=== PATIENT | male | born 1980 | race Two or more races ===

== ENCOUNTER 2019-03-09 20:24 | Emergency (ER) | payer SELFPAY ==
[2019-03-09 20:37] VITALS: BP 134/84
[2019-03-09] MEDS ORDERED: PREDNISONE 20 MG TABLET PO ONE (20:42)
[2019-03-09] MEDS ORDERED: FAMOTIDINE 20 MG TABLET PO ONE (20:42)
--- NOTE | 2019-03-09 20:48 | ER Document Report ---
ED Allergic Reaction - General Chief Complaint: Allergic Reaction Stated Complaint: RASH/ALLERGIC REACTION Time Seen by Provider: 03/09/19 20:41 Mode of Arrival: Ambulatory Information source: Patient Notes: 38-year-old male presented to ED for swelling and rash to bilateral hands up to just above the wrist. He states it started last night after working. He states he worked outside all day yesterday but he had on latex gloves and long sleeves all the way down past the gloves. He states there is no way he got in touch with any allergens from the outside. He states these were his labs no one else had worn these gloves. He denies any known allergies. He states he smokes 2 to 3 cigarettes a day and works for the [employer]. States he took 2 Benadryl last night to again at 7 and 2 again at 5 or 6:00 this afternoon has been using calamine lotion on his hands all day. He states the swelling has continued. TRAVEL OUTSIDE OF THE [place] IN LAST 30 DAYS: No - HPI Onset: Yesterday Onset/Duration: Gradual Quality of pain: Other - Rash and swelling Severity: None Pain Level: Denies Identified cause: No Skin rash / itching: "Redness", "Hives" - Both hands and wrist Swelling: Hands - Both hands and wrist Associated symptoms: None Similar symptoms previously: No Recently seen / treated by doctor: No - Related Data Allergies/Adverse Reactions: No Known Allergies Allergy (Unverified 03/09/19 20:43) Past Medical History - General Information source: Patient - Social History Smoking Status: Current Every Day Smoker Cigarette use (# per day): Yes - 2 to 3 cigarettes a day Smoking Education Provided: Yes Frequency of alcohol use: None Drug Abuse: None Lives with: Alone Family History: Reviewed & Not Pertinent Patient has suicidal ideation: No Patient has homicidal ideation: No - Past Medical History Cardiac Medical History: Reports: None Pulmonary Medical History: Reports: None EENT Medical History: Reports: None Neurological Medical History: Reports: None Endocrine Medical History: Reports: None Renal/ Medical History: Reports: None Malignancy Medical History: Reports None GI Medical History: Reports: None Musculoskeletal Medical History: Reports None Skin Medical History: Reports None Psychiatric Medical History: Reports: None Traumatic Medical History: Reports: None Infectious Medical History: Reports: None Surgical Hx: Negative Past Surgical History: Reports: None - Immunizations Immunizations up to date: Yes Hx Diphtheria, Pertussis, Tetanus Vaccination: Yes Review of Systems - Review of Systems Constitutional: No symptoms reported EENT: No symptoms reported Cardiovascular: No symptoms reported Respiratory: No symptoms reported Gastrointestinal: No symptoms reported Genitourinary: No symptoms reported Male Genitourinary: No symptoms reported Musculoskeletal: No symptoms reported Skin: Rash - Rash and swelling to bilateral hands Hematologic/Lymphatic: No symptoms reported Neurological/Psychological: No symptoms reported -: Yes All other systems reviewed and negative Physical Exam - Vital signs Vitals: Temp Pulse Resp BP Pulse Ox 98.6 F 90 18 134/84 H 97 03/09/19 20:36 03/09/19 20:36 03/09/19 20:36 03/09/19 20:36 03/09/19 20:36 Interpretation: Normal - General General appearance: Appears well, Alert - HEENT Head: Normocephalic, Atraumatic Eyes: Normal Pupils: PERRL - Respiratory Respiratory status: No respiratory distress Chest status: Nontender Breath sounds: Normal Chest palpation: Normal - Cardiovascular Rhythm: Regular Heart sounds: Normal auscultation Murmur: No - Abdominal Inspection: Normal Distension: No distension Bowel sounds: Normal Tenderness: Nontender Organomegaly: No organomegaly - Back Back: Normal, Nontender - Extremities General upper extremity: Nontender, Normal ROM, Normal temperature General lower extremity: Normal inspection, Nontender, Normal color, Normal ROM, Normal temperature, Normal weight bearing. No: Lj's sign Hand: Swelling - Bilateral hands, Other - Papule red rash and swelling. No: No evidence of human bite, No evidence of FB - Neurological Neuro grossly intact: Yes Cognition: Normal Orientation: AAOx4 Julio Cesar Coma Scale Eye Opening: Spontaneous Phelps Coma Scale Verbal: Oriented Phelps Coma Scale Motor: Obeys Commands Phelps Coma Scale Total: 15 Speech: Normal Motor strength normal: LUE, RUE, LLE, RLE Sensory: Normal - Psychological Associated symptoms: Normal affect, Normal mood - Skin Skin Temperature: Warm Skin Moisture: Dry Skin Color: Normal Location of irregularity: Extremities - Bilateral hands and wrist Character of irregularity: Papular, Erythematous, Urticarial Irregularity with: Swelling Course - Re-evaluation Re-evalutation: 03/09/19 20:54 Patient treated with prednisone and Pepcid and instructed to follow-up with senior medical transcriptionist. Patient was given a prescription for Pepcid and prednisone. Patient was given a list of the local senior medical transcriptionist to follow-up with. Patient was also given a list of primary care doctors. Was discharged home. Patient was instructed to elevate ice hands to reduce use of hot water to the hands. - Vital Signs Vital signs: Temp Pulse Resp BP Pulse Ox 98.6 F 90 18 134/84 H 97 03/09/19 20:36 03/09/19 20:36 03/09/19 20:36 03/09/19 20:36 03/09/19 20:36 Discharge - Discharge Clinical Impression: Allergic reaction Qualifiers: Encounter type: initial encounter Qualified Code(s): T78.40XA - Allergy, unspecified, initial encounter Condition: Stable Disposition: HOME, SELF-CARE Instructions: Family Physicians / Practices Additional Instructions: ACUTE ALLERGIC REACTION: Your symptoms are due to an allergic reaction. Allergy can cause hives, swelling of the hands, feet, and face, hoarseness, and difficulty swallowing or breathing. It may be due to exposure to medication, animal dander, foods, infection, or insect bites. Medication is a common cause, even when prior use of this same medication caused no problems. Acute treatment may include adrenalin and antihistamines. Usually, the specific allergic agent can't be identified unless repeated episodes occur. Home treatment includes the following: (1) Stop any suspicious medications. This will be discussed with you. (2) Oral antihistamines for the next four to five days. Example, diphenhydramine (Benadryl) every four hours. (3) You may also use cimetidine (Tagamet), ranitidine (Zantac), or famotidine (Pepcid) every four hours if diphenhydramine is not controlling itching and hives. (4) Avoid aspirin until the hives completely disappear. (5) Avoid hot baths or showers until the hives are completely gone. Call the doctor if faintness, difficulty swallowing, tightness in the chest, or wheezing occurs. STEROID MEDICATION: You have been given a medicine of the cortisone/steroid class. This medication is used to control inflammation or allergy. It is usually only given for a short period of time, until the acute process subsides. There are usually no side effects from short-term use of cortisone-like medications. Some persons feel an increased sense of well-being and are not sleepy at bedtime. Long-term use of cortisone medications is best avoided, unless required for a severe condition. If your condition does not remit, or relapses after the course of corticosteroid medication, you should consult your physician. ACID-SUPPRESSING MEDICATION: You have a prescription for medicine which reduces the stomach's secretion of acid. Examples include Zantac, Tagament, and Pepcid. These drugs are often used to allow healing of ulcers or esophagitis. They may be needed to prevent recurrence of ulcers in some patients, or to prevent damage from acid reflux in the esophagus. Take all medication as prescribed, even after the pain is gone. Regular antacids may be added as needed if you have symptoms while taking this medicine. These medications sometimes are prescribed for allergic reactions because they have anti-histaminic effects and relieve the rash and itching of the reaction. There are usually no side effects from this medication. But, in rare cases and particularly in the elderly, serious problems can occur. Contact your doctor if there is fever, rash, hallucinations, confusion, or unusual bruising. Contact your doctor at once if you develop lightheadedness, black or bloody stool, or bloody vomitus. ANTIHISTAMINES: An antihistamine has been given and/or prescribed to control your symptoms. Antihistamines are used for many reasons, including itching, watering eyes, runny nose, allergic swelling, hives, and insect stings. Antihistamines may cause drowsiness, especially with the first dose. Do not operate machinery or drive while under the effects of the medication. Other common side effects include dry mouth and eyes. In older persons, antihistamines can occasionally cause urinary retention, constipation, and trouble focusing the eyes. Do not combine the medication with alcohol, or with any other medication without talking to your doctor. USE OF DIPHENHYDRAMINE: The use of diphenhydramine (Benadryl) has been recommended to control allergic symptoms. The 25 mg strength is available over- the-counter, as well as the elixir. This antihistamine is used for many symptoms. It's useful for itching, watering eyes and nose, allergic swelling, hives, and insect stings. The medication can be repeated four times daily. Age Elixir (12.5 mg/tsp) 25 mg pill 2-3 yr 1/2 tsp 4-8 yr 1 tsp 9-14 yr 2 tsp one tab adult 1-2 tabs Antihistamines may cause drowsiness, especially with the first dose. Do not operate machinery or drive while under the effects of the medication. Do not combine the medication with alcohol, or with any other medication without talking to your doctor. FOLLOW-UP CARE: If you have been referred to a physician for follow-up care, call the physicians office for an appointment as you were instructed or within the next two days. If you experience worsening or a significant change in your symptoms, notify the physician immediately or return to the Emergency Department at any time for re-evaluation. Dr. Paddy Gonzalez, Tube Handler-Track Layer in [place], [place] | [facility] ... [email or web address] [email or web address] - ?[email or web address] [email or web address] Gonzalez is an senior medical transcriptionist-outside deliverer in [place], [place]. He received his medical degree from [employer] and has been in ... Allergists in [place], [place] - Ratings and Reviews | [employer] [email or web address] An allergy & bibliographic services specialist is a physician who is specially trained in matters pertaining to chronic and acute allergies, as well as deficiencies of the ... [facility] ... [email or web address]/ [facility] ... and a member of the [employer]. Dr. Duran is licensed by the [place] [employer]. Allergy | [facility] [email or web address] Allergy. [facility] is [facility] only practice to provide a multidisciplinary approach to Allergy care for patients of all ages. Allergy providers treat ... [facility] Asthma & Promotions Coordinator Doctors - Allergy ... [email or web address] Asthma & Promotions Coordinator Doctors physician directory - Read about allergy treatment, symptoms, testing, shots, and medicine. Prescriptions: Famotidine [Pepcid 20 mg Tablet] 20 mg PO DAILY #12 tablet Prednisone [Deltasone 20 mg Tablet] 3 tab PO DAILY 5 Days tablet Forms: Elevated Blood Pressure, Smoking Cessation Education, Return to Work
== END 2019-03-09 20:49 | disposition home or self-care (01) ==
LOC: ER 20:24
DX: T78.40XA Allergy, unspecified, initial encounter (principal); F17.210 Nicotine dependence, cigarettes, uncomplicated; X58.XXXA Exposure to other specified factors, initial encounter
CPT/HCPCS: 99283; J7512